=== PATIENT | female | born 1980 | race African-American/Black ===

== ENCOUNTER 2021-09-27 16:26 | Emergency (ER) | payer SELFPAY ==
[~2021-09-27] VITALS: Ht 233.7 cm; Wt 61.2 kg
[2021-09-27 17:30] LABS: BASOPHILS % 0.4 % (0.0-1.0); EOSINOPHILS # (AUTO) 0.2 (0.0-0.4); EOSINOPHILS % 3.5 % (0.0-6.0); HEMATOCRIT 38.7 % (34.2-44.1); HEMOGLOBIN 13.2 g/dL (12.0-16.0); LYMPHOCYTES # (AUTO) 2.6 (1.0-3.2); LYMPHOCYTES % 38.8 % (18.0-39.1); MEAN CORPUSCULAR HEMOGLOBIN 30.8 pg (28-32); MEAN CORPUSCULAR HGB CONC 34.1 g/dL (31-35); MEAN CORPUSCULAR VOLUME 90.4 fL (81-99); MONOCYTES # (AUTO) 0.5 (0.2-0.8); MONOCYTES % 7.8 % (4.4-11.3); NEUTROPHILS # (AUTO) 3.4 (2.1-6.9); NEUTROPHILS % 49.4 % (38.7-80.0); PLATELET COUNT 241 x10e3/uL (140-360); RED BLOOD COUNT 4.28 x10e6/uL (3.6-5.1); RED CELL DISTRIBUTION WIDTH 10.8 % (11.7-14.4)
[2021-09-27 17:49] LABS: ALBUMIN 3.4 g/dL (3.5-5.0); ALBUMIN/GLOBULIN RATIO 0.8 (0.8-2.0); ANION GAP 13.6 mmol/L (8-16); CALCIUM 9.3 mg/dL (8.4-10.2); CREATININE, SERUM 0.76 mg/dL (0.57-1.11); LIPASE 29 U/L (8-78); POTASSIUM 3.6 mmol/L (3.5-5.1)
[2021-09-27 18:32] VITALS: BP 117/80
== END 2021-09-27 18:33 | disposition home or self-care (01) ==
LOC: ER 16:35
DX: R06.00 Dyspnea, unspecified (principal); R07.89 Other chest pain; J45.909 Unspecified asthma, uncomplicated; R94.31 Abnormal electrocardiogram [ECG] [EKG]
CPT/HCPCS: 36415; 71045; 80053; 83690; 84484; 84702; 85025; 93005; 99284

== ENCOUNTER 2021-12-02 20:18 | Emergency (ER) | payer OTHER ==
[~2021-12-02] VITALS: Ht 160 cm; Wt 65.6 kg
[2021-12-02] MEDS ORDERED: KETOROLAC TROMETHAMINE 30 MG/ML VIAL IM STA (21:08)
[2021-12-02] MEDS ORDERED: PREDNISONE 20 MG TAB PO ONE (21:15)
[2021-12-02] MEDS ORDERED: ALBUTEROL/IPRATROPIUM 3 ML NEB NEB ONE (21:15)
[2021-12-02] MEDS ORDERED: KETOROLAC TROMETHAMINE 30 MG/ML VIAL ONE (21:38)
[2021-12-02] MEDS ORDERED: ALBUTEROL/IPRATROPIUM 3 ML NEB ONE (21:38)
[2021-12-02] MEDS ORDERED: PREDNISONE 20 MG TAB ONE (21:38)
[2021-12-02] MEDS ORDERED: PREDNISONE20 MG PO (21:55)
[2021-12-02] MEDS ORDERED: ALBUTEROL2.5 MG/3 M INH (21:58)
== END 2021-12-02 22:55 | disposition home or self-care (01) ==
LOC: FSED 20:21
DX: R07.89 Other chest pain (principal); J45.901 Unspecified asthma with (acute) exacerbation; R06.02 Shortness of breath; R05.9 Cough, unspecified
CPT/HCPCS: 71046; 93005; 96372; 99283; J1885; J7512